=== PATIENT | male | born 1940 | race Caucasian/White ===

== ENCOUNTER 2021-03-30 17:05 | Emergency (ER) | payer OTHER ==
[~2021-03-30] VITALS: Ht 160 cm; Wt 69.9 kg
[~2021-03-30 17:05] MED LIST: ASPIR 8181 MG PO; CRESTOR40 MG PO; PLAVIX75 MG PO; SYNTHROID50 MCG PO; [UNRECOGNIZED DRUG - OTHER] PO
[2021-03-30] MEDS ORDERED: BISOPROLOL FUMAR5 MG PO (17:59)
[2021-03-30] MEDS ORDERED: SERTRALINE HCL50 MG PO (18:00)
[2021-03-30] MEDS ORDERED: OMEPRAZOLE20 MG PO (18:00)
[2021-03-30] MEDS ORDERED: ROSUVASTATIN CA40 MG PO (18:00)
[2021-03-30] MEDS ORDERED: EZETIMIBE10 MG PO (18:00)
[2021-03-30] MEDS ORDERED: MEMANTINE HCL10 MG PO (18:00)
[2021-03-30] MEDS ORDERED: SYNTHROID75 MCG PO (18:01)
[2021-03-30] MEDS ORDERED: LASIX20 MG PO (23:27)
== END 2021-03-31 00:56 | disposition home or self-care (01) ==
LOC: ER 17:05
DX: I50.9 Heart failure, unspecified (principal); J84.10 Pulmonary fibrosis, unspecified; Z11.52 Encounter for screening for COVID-19

== ENCOUNTER 2021-04-20 15:42 | Emergency (ER) | payer OTHER ==
[~2021-04-20] VITALS: Ht 160 cm; Wt 69.9 kg
[~2021-04-20 15:42] MED LIST changes: +BISOPROLOL FUMAR5 MG PO; +EZETIMIBE10 MG PO; +LASIX20 MG PO; +MEMANTINE HCL10 MG PO; +OMEPRAZOLE20 MG PO; +ROSUVASTATIN CA40 MG PO; +SERTRALINE HCL50 MG PO; +SYNTHROID75 MCG PO
== END 2021-04-20 21:07 | disposition home or self-care (01) ==
LOC: ER 15:42
DX: S32.059A Unspecified fracture of fifth lumbar vertebra, initial encounter for closed fracture (principal); S22.089A Unspecified fracture of T11-T12 vertebra, initial encounter for closed fracture; S00.91XA Abrasion of unspecified part of head, initial encounter; M54.50 Low back pain, unspecified; W20.8XXA Other cause of strike by thrown, projected or falling object, initial encounter; Y93.9 Activity, unspecified; Y92.9 Unspecified place or not applicable; Y99.9 Unspecified external cause status

== ENCOUNTER 2021-08-06 07:08 | Outpatient (CLI) | payer OTHER | END 2021-08-06 07:16 | disposition home or self-care (01) | LOC: RX STUDY 07:08 | PROVIDERS: ATTEND Internal Medicine Gastroenterology | DX: R13.10 Dysphagia, unspecified (principal) ==

== ENCOUNTER 2023-04-20 17:37 | Emergency (ER) | payer OTHER ==
[~2023-04-20] VITALS: Ht 160 cm; Wt 65.8 kg
[2023-04-20 18:52] LABS: HEMATOCRIT 32.7 % (39.0-48.0); HEMOGLOBIN 10.7 g/dL (13-16.00); MEAN CELL VOLUME 77.7 fL (80.0-100.00); MEAN CORPUSCULAR HEMOGLOBIN 25.5 pg (27.00-32.0); MEAN CORPUSCULAR HGB CONC 32.8 g/dl (32.0-36.0); PLATELET COUNT 194 K/uL (150-450); RED BLOOD COUNT 4.21 M/uL (4.00-6.00); RED CELL DISTRIBUTION WIDTH 15.5 % (11.5-14.5)
[2023-04-20 18:56] LABS: URINE APPEARANCE Clear; URINE BILIRRUBIN Negative (NEGATIVE); URINE BLOOD Negative; URINE COLOR Yellow; URINE GLUCOSE Negative (NEGATIVE); URINE LEUKOCYTE Negative; URINE NITRATE Negative; URINE PROTEIN Trace (NEGATIVE)
[2023-04-20 19:00] LABS: URINE BACTERIA 12.5 uL (0.0-1933); URINE WBC 3.5 uL (0.0-23.2)
[2023-04-20 19:33] LABS: CALCIUM 8.8 mg/dL (8.5-10.1); CREATININE SERUM 1.17 mg/dL (0.70-1.30); GFR 59.98; POTASSIUM 4.31 mEq/L (3.5-5.1)
[2023-04-20 20:53] LABS: ABG PH 7.432 (7.35-7.45); ABG pCO2 33.5 mmHg (35-45); BASE EXCESS -1.6 mmol/l; BICARBONATE 21.8 mmol/l (23-25)
[2023-04-20 20:54] LABS: SaO2 94.3 %; Tco2 22.9 mmol/l; allen test SATISFACTORY; o2 21 %; puncture site RADIAL RIGHT
== END 2023-04-20 21:38 | disposition home or self-care (01) ==
LOC: ER 17:37
PROVIDERS: General Practice
DX: J06.9 Acute upper respiratory infection, unspecified (principal); Z20.822 Contact with and (suspected) exposure to COVID-19; Z95.1 Presence of aortocoronary bypass graft

== ENCOUNTER 2023-10-08 14:06 | Inpatient (IN) | payer OTHER ==
[~2023-10-08] VITALS: Ht 160 cm; Wt 63.5 kg
[2023-10-08] MEDS ORDERED: CRESTOR40 MG (15:17)
[2023-10-08] MEDS ORDERED: FUROSEMIDE IV SCH (15:27)
[2023-10-08] MEDS ORDERED: ASPIRIN 81 MG TAB.CHEW PO SCH (15:30)
[2023-10-08] MEDS ORDERED: NITROGLYCERIN 250 ML IV SCH (15:45)
[2023-10-08 16:01] LABS: HEMATOCRIT 40.6 % (39.0-48.0); HEMOGLOBIN 13.5 g/dL (13-16.00); MEAN CELL VOLUME 79.5 fL (80.0-100.00); MEAN CORPUSCULAR HEMOGLOBIN 26.4 pg (27.00-32.0); MEAN CORPUSCULAR HGB CONC 33.2 g/dl (32.0-36.0); PLATELET COUNT 200 K/uL (150-450); RED BLOOD COUNT 5.11 M/uL (4.00-6.00); RED CELL DISTRIBUTION WIDTH 17.1 % (11.5-14.5)
[2023-10-08] MEDS ORDERED: NITROGLYCERIN IN 5 % DEXTROSE 50 MG/250 ML BOTTLE IV ONE (16:20)
[2023-10-08 16:24] LABS: INR 1.12; PROTHROMBIN TIME 11.7 SECONDS (9.0-11.5)
[2023-10-08 16:41] LABS: ABG PH 7.419 (7.35-7.45); ABG PO2 92.9 mmHg (80-100); ABG pCO2 36.9 mmHg (35-45); BASE EXCESS -0.7 mmol/l; BICARBONATE 23.3 mmol/l (23-25); SaO2 97.3 %; Tco2 24.5 mmol/l
[2023-10-08 16:49] LABS: CALCIUM 9.1 mg/dL (8.5-10.1); CHOL HDL RATIO 2.3 (0-5.0); CREATININE SERUM 0.94 mg/dL (0.70-1.30); GFR 77.02; MAGNESIUM 2.1 mg/dL (1.8-2.4); POTASSIUM 5.51 mEq/L (3.5-5.1)
[2023-10-08 16:57] LABS: DIGOXIN 0.2 ng/ml (0.8-2.0)
[2023-10-08 17:00] LABS: allen test SATISFACTORY; o2 32 %; puncture site RADIAL LEFT
[2023-10-08 17:12] LABS: URIC ACID 2.7 mg/dL (3.5-8.5)
[2023-10-08 17:12] LABS: URINE APPEARANCE Clear; URINE BILIRRUBIN Negative (NEGATIVE); URINE BLOOD Negative; URINE COLOR Yellow; URINE GLUCOSE Negative (NEGATIVE); URINE KETONE Negative (NEGATIVE); URINE LEUKOCYTE Negative; URINE NITRATE Negative; URINE PROTEIN Trace (NEGATIVE)
[2023-10-08 17:13] LABS: URINE BACTERIA 18.8 uL (0.0-1933); URINE EPITHELIAL CELLS 2.6 uL (0.0-38.8); URINE RBC 26.8 uL (0.0-20.8); URINE WBC 15.4 uL (0.0-23.2)
[2023-10-08] MEDS ORDERED: SODIUM POLYSTYRENE SULFONATE 15 G/4 TSP TSP PO SCH (19:25)
[2023-10-08] MEDS ORDERED: ACETAMINOPHEN 500 MG GEL..CAP PO PRN (19:30)
[2023-10-08] MEDS ORDERED: ORPHENADRINE CITRATE 30 MG/ML AMPUL IM ONE (19:30)
[2023-10-08] MEDS ORDERED: ORPHENADRINE CITRATE 30 MG/ML AMPUL ONE (20:36)
[2023-10-08] MEDS ORDERED: NITROGLYCERIN IN 5 % DEXTROSE 250 ML IV SCH (21:00)
[2023-10-09] MEDS ORDERED: FUROsemide 20 MG/2 ML VIAL IV SCH (01:00)
[2023-10-09] MEDS ORDERED: FUROsemide 40 MG/4 ML VIAL ONE (01:19)
[2023-10-09] MEDS ORDERED: LEVOTHYROXINE SODIUM 75 MCG TABLET PO SCH (06:00)
[2023-10-09] MEDS ORDERED: CLOPIDOGREL BISULFATE 75 MG TABLET PO SCH (09:00)
[2023-10-09] MEDS ORDERED: ENOXAPARIN SODIUM 40 MG/0.4 ML SYRINGE SUBCUTANEO SCH (09:00)
[2023-10-09] MEDS ORDERED: MEMANTINE HCL 10 MG TABLET PO SCH (09:00)
[2023-10-09] MEDS ORDERED: FUROsemide 40 MG/4 ML VIAL IV SCH (17:00)
[2023-10-09] MEDS ORDERED: ORPHENADRINE CITRATE 30 MG/ML AMPUL IM NR (19:45)
[2023-10-09] MEDS ORDERED: NITROGLYCERIN IN 5 % DEXTROSE 250 ML IV SCH (21:00)
[2023-10-10 07:46] LABS: HEMATOCRIT 39.9 % (39.0-48.0); HEMOGLOBIN 13.6 g/dL (13-16.00); MEAN CELL VOLUME 77.8 fL (80.0-100.00); MEAN CORPUSCULAR HEMOGLOBIN 26.5 pg (27.00-32.0); MEAN CORPUSCULAR HGB CONC 34.1 g/dl (32.0-36.0); PLATELET COUNT 192 K/uL (150-450); RED BLOOD COUNT 5.13 M/uL (4.00-6.00)
[2023-10-10 08:24] LABS: ALBUMIN 3.2 gm/dL (3.4-5.0); BILIRUBIN TOTAL 1.61 mg/dL (0.3-1.2); CALCIUM 8.8 mg/dL (8.5-10.1); CREATININE SERUM 0.84 mg/dL (0.70-1.30); GFR 87.7; GLOBULINA 3.7 G/DL (2.4-3.5); MAGNESIUM 1.9 mg/dL (1.8-2.4); PHOSPHOROUS 3.7 mg/dL (2.5-4.9); POTASSIUM 3.72 mEq/L (3.5-5.1); TOTAL PROTEIN 6.9 gm/dL (6.4-8.2)
[2023-10-10] MEDS ORDERED: FUROsemide 40 MG/4 ML VIAL IV SCH ×2 (09:00→21:00)
[2023-10-10] MEDS ORDERED: CHLORHEXIDINE GLUCONATE 120 ML BOTTLE TOP ONE (09:58)
[2023-10-10] MEDS ORDERED: FAMOTIDINE/PF 20 MG/2 ML VIAL IV SCH (21:00)
[2023-10-11 07:14] LABS: ALBUMIN 3.1 gm/dL (3.4-5.0); BILIRUBIN TOTAL 1.67 mg/dL (0.3-1.2); CALCIUM 8.7 mg/dL (8.5-10.1); CREATININE SERUM 0.93 mg/dL (0.70-1.30); GFR 77.98; GLOBULINA 3.7 G/DL (2.4-3.5); MAGNESIUM 1.9 mg/dL (1.8-2.4); PHOSPHOROUS 2.8 mg/dL (2.5-4.9); POTASSIUM 3.14 mEq/L (3.5-5.1); TOTAL PROTEIN 6.8 gm/dL (6.4-8.2)
[2023-10-11 07:42] LABS: HEMATOCRIT 40.6 % (39.0-48.0); HEMOGLOBIN 13.7 g/dL (13-16.00); MEAN CELL VOLUME 77.5 fL (80.0-100.00); MEAN CORPUSCULAR HEMOGLOBIN 26.1 pg (27.00-32.0); MEAN CORPUSCULAR HGB CONC 33.7 g/dl (32.0-36.0); PLATELET COUNT 201 K/uL (150-450); RED BLOOD COUNT 5.23 M/uL (4.00-6.00); RED CELL DISTRIBUTION WIDTH 17.1 % (11.5-14.5)
[2023-10-11] MEDS ORDERED: FUROsemide 20 MG/2 ML VIAL IV SCH (09:00)
[2023-10-11] MEDS ORDERED: LOSARTAN POTASSIUM 25 MG TABLET PO SCH (09:00)
[2023-10-11] MEDS ORDERED: POTASSIUM CHLORIDE IN WATER 100 ML IV NR (12:15)
[2023-10-11] MEDS ORDERED: POTASSIUM BICARBONATE/CIT AC 25 MEQ TABLET.EFF PO SCH (17:00)
[2023-10-12 06:44] LABS: HEMATOCRIT 39.8 % (39.0-48.0); HEMOGLOBIN 13.4 g/dL (13-16.00); MEAN CORPUSCULAR HEMOGLOBIN 26.3 pg (27.00-32.0); MEAN CORPUSCULAR HGB CONC 33.8 g/dl (32.0-36.0); PLATELET COUNT 200 K/uL (150-450); RED CELL DISTRIBUTION WIDTH 17.1 % (11.5-14.5)
[2023-10-12 07:26] LABS: ALBUMIN 2.8 gm/dL (3.4-5.0); BILIRUBIN TOTAL 1.39 mg/dL (0.3-1.2); CALCIUM 8.6 mg/dL (8.5-10.1); CREATININE SERUM 1.29 mg/dL (0.70-1.30); GFR 53.45; GLOBULINA 3.6 G/DL (2.4-3.5); POTASSIUM 4.25 mEq/L (3.5-5.1); TOTAL PROTEIN 6.4 gm/dL (6.4-8.2)
[2023-10-12] MEDS ORDERED: 0.9 % SODIUM CHLORIDE 1,000 ML IV SCH (11:00)
[2023-10-13] MEDS ORDERED: FUROsemide 20 MG TABLET PO SCH (09:00)
[2023-10-13] MEDS ORDERED: FAMOTIDINE/PF 20 MG/2 ML VIAL IV SCH (09:00)
[2023-10-13 09:28] LABS: CALCIUM 8.7 mg/dL (8.5-10.1); CREATININE SERUM 1.17 mg/dL (0.70-1.30); GFR 59.83; POTASSIUM 3.93 mEq/L (3.5-5.1)
[2023-10-14 08:19] LABS: ALBUMIN 2.5 gm/dL (3.4-5.0); BILIRUBIN TOTAL 0.99 mg/dL (0.3-1.2); CALCIUM 8.8 mg/dL (8.5-10.1); CREATININE SERUM 0.82 mg/dL (0.70-1.30); GFR 90.17; GLOBULINA 3.8 G/DL (2.4-3.5); MAGNESIUM 2.2 mg/dL (1.8-2.4); PHOSPHOROUS 3.3 mg/dL (2.5-4.9); POTASSIUM 4.26 mEq/L (3.5-5.1); TOTAL PROTEIN 6.3 gm/dL (6.4-8.2); TSH 3.55 uIU/mL (0.358-3.74)
[2023-10-14 08:37] LABS: HEMATOCRIT 41.6 % (39.0-48.0); HEMOGLOBIN 13.9 g/dL (13-16.00); MEAN CELL VOLUME 78.4 fL (80.0-100.00); MEAN CORPUSCULAR HEMOGLOBIN 26.1 pg (27.00-32.0); MEAN CORPUSCULAR HGB CONC 33.3 g/dl (32.0-36.0); RED BLOOD COUNT 5.31 M/uL (4.00-6.00); RED CELL DISTRIBUTION WIDTH 17.2 % (11.5-14.5)
[2023-10-14 08:48] LABS: PLATELET COUNT 213 K/uL (150-450)
[2023-10-14] MEDS ORDERED: PANTOPRAZOLE SODIUM 40 MG TABLET.DR PO SCH (09:00)
[2023-10-14 13:25] LABS: PH,URINE 5.5 (5.0-8.0); URINE APPEARANCE Clear; URINE BILIRRUBIN Negative (NEGATIVE); URINE BLOOD Trace; URINE COLOR Yellow; URINE GLUCOSE Negative (NEGATIVE); URINE KETONE Negative (NEGATIVE); URINE LEUKOCYTE Trace; URINE NITRATE Negative; URINE PROTEIN Trace (NEGATIVE)
[2023-10-14 13:28] LABS: URINE BACTERIA 13.8 uL (0.0-1933); URINE CAST 1.67 uL (0.0-1.40); URINE EPITHELIAL CELLS 13.5 uL (0.0-38.8); URINE RBC 8.2 uL (0.0-20.8); URINE WBC 5.7 uL (0.0-23.2)
[2023-10-15 05:16] LABS: MEAN CELL VOLUME 79.1 fL (80.0-100.00); MEAN CORPUSCULAR HEMOGLOBIN 26.5 pg (27.00-32.0); MEAN CORPUSCULAR HGB CONC 33.5 g/dl (32.0-36.0); PLATELET COUNT 249 K/uL (150-450); RED BLOOD COUNT 4.93 M/uL (4.00-6.00); RED CELL DISTRIBUTION WIDTH 16.4 % (11.5-14.5)
[2023-10-15 05:41] LABS: ALBUMIN 2.6 gm/dL (3.4-5.0); BILIRUBIN TOTAL 0.97 mg/dL (0.3-1.2); CALCIUM 8.8 mg/dL (8.5-10.1); CREATININE SERUM 0.91 mg/dL (0.70-1.30); GFR 79.96; GLOBULINA 3.6 G/DL (2.4-3.5); PHOSPHOROUS 3.1 mg/dL (2.5-4.9); TOTAL PROTEIN 6.2 gm/dL (6.4-8.2)
[2023-10-15 05:52] LABS: POTASSIUM 3.87 mEq/L (3.5-5.1)
[2023-10-16] MEDS ORDERED: CLOPIDOGREL BIS75 MG PO (10:27)
[2023-10-16] MEDS ORDERED: MEMANTINE HCL10 MG PO (10:28)
[2023-10-16] MEDS ORDERED: LOSARTAN POTASS25 MG PO (10:28)
[2023-10-16] MEDS ORDERED: LEVOTHYROXINE75 MCG PO (10:29)
[2023-10-16] MEDS ORDERED: FUROSEMIDE20 MG PO (10:29)
[2023-10-17] MEDS ORDERED: FUROsemide 20 MG TABLET PO SCH (09:00)
== END 2023-10-16 16:03 | disposition home or self-care (01) | DRG 291 ==
LOC: ER 14:07 → ICU 19:35 → ICU-2 19:35 → ICU 10-09 05:04 → MEDI 10-10 18:05
PROVIDERS: Emergency Medicine; ADMIT Internal Medicine; ATTEND Internal Medicine
PROC: BB24ZZZ Computerized Tomography (CT Scan) of Bilateral Lungs (ICD-10-PCS; principal; 2023-10-08)
PROC: B246ZZZ Ultrasonography of Right and Left Heart (ICD-10-PCS; 2023-10-08)
PROC: 4A12X4Z Monitoring of Cardiac Electrical Activity, External Approach (ICD-10-PCS; 2023-10-10)
PROC: BB24YZZ Computerized Tomography (CT Scan) of Bilateral Lungs using Other Contrast (ICD-10-PCS; 2023-10-14)
DX: I11.0 Hypertensive heart disease with heart failure (principal); I50.23 Acute on chronic systolic (congestive) heart failure; J90 Pleural effusion, not elsewhere classified; E87.5 Hyperkalemia; R09.02 Hypoxemia; J84.10 Pulmonary fibrosis, unspecified